=== PATIENT | female | born 1970 | race Caucasian/White ===

== ENCOUNTER 2020-01-20 13:13 | Emergency (ER) | payer MEDICAID ==
[~2020-01-20] VITALS: Ht 162.6 cm; Wt 64.2 kg
[2020-01-20 13:17] VITALS: BP 123/80
--- NOTE | 2020-01-20 15:08 | NUR ---
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
--- NOTE | 2020-01-20 15:23 | NUR ---
PT NOTED TO HAVE ABCESS ON BACK OF NECK. STATES IT STARTED TO DEVELOP 4 DAYS AGO
[2020-01-20] MEDS ORDERED: DIPH,PERTUSS(ACELL),TET VAC/PF 0.5 ML IM-VACC ONE ×2 (16:25→16:30)
[2020-01-20] MEDS ORDERED: LIDOCAINE-MPF 1%, 5ML ONE (16:28)
[2020-01-20] MEDS ORDERED: LIDOCAINE-MPF 1%, 5ML INFIL ONE (16:30)
[2020-01-20] MEDS ORDERED: SULFAMETH./TRIMETHOPRIM DS 800MG/160MG TABLET ONE (16:53)
[2020-01-20] MEDS ORDERED: CEPHALEXIN 500 MG CAPSULE ONE (16:54)
[2020-01-20] MEDS ORDERED: CEPHALEXIN 500 MG CAPSULE PO ONE (17:00)
[2020-01-20] MEDS ORDERED: SULFAMETH./TRIMETHOPRIM DS 800MG/160MG TABLET PO ONE (17:00)
--- NOTE | 2020-01-20 17:15 | NUR ---
AFTER I&D OF ABCESS NECK FLUSHED WITH SALINE AND LARGE BAND-AID PLACED. PROVIDED RESOURCE TO GET ASSISTANCE WITH MED COST AND TAXI VOUCHER. PT GIVEN DISHARGE INSTRUCTIONS INCLUDING TO RETURN FOR RECHECK IN 48 HOURS
== END 2020-01-20 17:19 | disposition home or self-care (01) ==
LOC: ED 17:00
DX: L02.11 Cutaneous abscess of neck (principal); F17.200 Nicotine dependence, unspecified, uncomplicated
CPT/HCPCS: 10060; 99283